=== PATIENT | male | born 1990 | race Caucasian/White ===

== ENCOUNTER 2020-11-22 09:00 | Emergency (ER) | payer MEDICAID, MEDICARE ==
[~2020-11-22] VITALS: Ht 177.8 cm; Wt 63.6 kg
[~2020-11-22 09:00] MED LIST: CHL4T PO; FLUT16SP2 NS; GUAI10SY2 PO; IBUP-1984 PO; PSEU-225 PO
[2020-11-22] MEDS ORDERED: ketorolac tromethamine 15mg/ml inj. IM ONE (09:15)
[2020-11-22] MEDS ORDERED: TETanus/Pertussis (Acell)/Diphther VAC/PF (Tdap-Adult) 0.5ml syringe IMVAC ONE (09:20)
[2020-11-22] MEDS ORDERED: LIDOcaine 1% 30ml preserv. free vial IJ ONE (09:20)
[2020-11-22] MEDS ORDERED: CEPH-585 PO (10:24)
[2020-11-22] MEDS ORDERED: mupirocin 2% ointment 22GM TP ONE (10:25)
[2020-11-22 10:36] VITALS: BP 145/78
== END 2020-11-22 10:45 | disposition home or self-care (01) ==
LOC: ER 09:00
DX: S01.412A Laceration without foreign body of left cheek and temporomandibular area, initial encounter (principal); S50.311A Abrasion of right elbow, initial encounter; Z88.8 Allergy status to other drugs, medicaments and biological substances; Z79.2 Long term (current) use of antibiotics; Z79.899 Other long term (current) drug therapy; Z56.0 Unemployment, unspecified; V19.9XXA Pedal cyclist (driver) (passenger) injured in unspecified traffic accident, initial encounter; Y93.89 Activity, other specified; Y92.89 Other specified places as the place of occurrence of the external cause; Y99.8 Other external cause status
CPT/HCPCS: 12011; 70450; 70486; 90471; 90715; 96372; 99285; J1885

== ENCOUNTER 2020-11-26 10:52 | Emergency (ER) | payer MEDICARE ==
[~2020-11-26] VITALS: Ht 177.8 cm; Wt 64.3 kg
[~2020-11-26 10:52] MED LIST changes: +CEPH-585 PO
[2020-11-26 11:24] VITALS: BP 121/73
== END 2020-11-26 11:43 | disposition home or self-care (01) ==
LOC: ER 10:53
DX: S01.412D Laceration without foreign body of left cheek and temporomandibular area, subsequent encounter (principal); F31.9 Bipolar disorder, unspecified; F20.9 Schizophrenia, unspecified; Z48.00 Encounter for change or removal of nonsurgical wound dressing; X58.XXXD Exposure to other specified factors, subsequent encounter; Z88.6 Allergy status to analgesic agent
CPT/HCPCS: 99281